=== PATIENT | male | born 1930 | race Caucasian/White ===

== ENCOUNTER → 2019-03-17 | Outpatient (CLI) | payer MEDICARE, BC ==
[2019-03-17 10:29] LABS: POTASSIUM 4.3 MMOL/L (3.6-5.0)
[2019-03-17 10:30] LABS: ALBUMIN 3.5 GM/DL (3.2-4.5); BILIRUBIN,TOTAL 0.7 MG/DL (0.1-1.0); CALCIUM 9.2 MG/DL (8.5-10.1); CREATININE SERUM 1.46 MG/DL (0.60-1.30); TOTAL PROTEIN 6.7 GM/DL (6.4-8.2)
[2019-03-17 15:52] LABS: CHOLESTEROL 105 MG/DL (< 200); HDL CHOLESTEROL 34 MG/DL (40-60); TRIGLYCERIDES 46 MG/DL (<150); VLDL CHOLESTEROL 9 MG/DL (5-40)
== END ==
LOC: LAB FS 08:11
PROVIDERS: ATTEND Pediatrics
DX: I10 Essential (primary) hypertension (principal); E78.00 Pure hypercholesterolemia, unspecified
CPT/HCPCS: 36415; 80053; 80061

== ENCOUNTER 2019-04-15 17:51 | Emergency (ER) | payer MEDICARE, BC | END 2019-04-15 18:30 | disposition home or self-care (01) | LOC: ER FS 17:51 ==

== ENCOUNTER 2019-04-17 10:13 | Emergency (ER) | payer MEDICARE, BC ==
[~2019-04-17] VITALS: Ht 170.2 cm; Wt 78.0 kg
[~2019-04-17 10:13] MED LIST: ALLO100T; ATOR20TA66; CEPH500T PO; HYDR12.5; LOSA100T57; VERA240T14
--- NOTE | 2019-04-17 10:41 | ED Integumentary General ---
General Chief Complaint: Skin/Wound Problems Stated Complaint: RT LEG INJ - INFECTED WOUND Source: patient Exam Limitations: no limitations History of Present Illness Date Seen by Provider: Apr 17, 2019 Time Seen by Provider: 10:24 Initial Comments Patient presents to ER by private conveyance with his daughter and chief complaint that she has been changing the wet-to-dry dressing on his wound for the past 3 days since she was seen in the ER by this provider and noted that it was more hot red and swollen then before. She picked up the Keflex and has been using it appropriately and does not feel that this wound is getting better but rather is gotten worse. He's had no fevers nausea pain. He is not diabetic. He does have dependent edema in both of his legs. The does want to make sure that he is safe to keep on doing the antibiotics and keep his outpatient follow-up appointment with wound care. Allergies and Home Medications Allergies Coded Allergies: No Known Drug Allergies (Unverified , 04/15/19) Home Medications Cephalexin 500 Mg Tablet, 500 MG PO QID Prescribed by: WILLA DUTTON on 04/15/19 [id number] Patient Home Medication List Home Medication List Reviewed: Yes Review of Systems Review of Systems Constitutional: No chills, No fever, No malaise EENTM: No ear discharge, No ear pain Respiratory: No cough, No short of breath Cardiovascular: No chest pain, No edema Gastrointestinal: No abdominal pain, No constipation, No diarrhea Genitourinary: No discharge, No dysuria Musculoskeletal: No back pain, No joint pain Past Zzfcryi-Vnpept-Gwyxdn Hx Patient Social History Alcohol Use: Denies Use Recreational Drug Use: No Smoking Status: Never a Smoker 2nd Hand Smoke Exposure: No Recent Hopitalizations: No Seasonal Allergies Seasonal Allergies: No Past Medical History Surgeries: Yes (skin cancer excision) Respiratory: No Cardiac: Yes High Cholesterol, Hypertension Neurological: No Genitourinary: No Gastrointestinal: No Musculoskeletal: No Endocrine: No HEENT: Yes Hearing Impairment: Hard of Hearing Cancer: Yes Skin Psychosocial: No Integumentary: Yes (skin cancer) Physical Exam Vital Signs Capillary Refill : General Appearance: WD/WN, no apparent distress HEENT: PERRL/EOMI, pharynx normal Cardiovascular: normal peripheral pulses, regular rate, rhythm (75); No no edema Respiratory: no respiratory distress, no accessory muscle use Neurologic/Psychiatric: alert, normal mood/affect, oriented x 3 Skin: other (to round 1 cm wide wounds of non-determinable depth on his right anterior staley. There is warmth and erythema but no induration or fluctuance palpable.) Progress/Results/Core Measures Results/Orders Lab Results Laboratory Tests Test 04/17/19 10:38 Range/Units White Blood Count 6.4 4.3-11.0 10^3/uL Red Blood Count 3.87 L 4.35-5.85 10^6/uL Hemoglobin 12.4 L 13.3-17.7 G/DL Hematocrit 37 L 40-54 % Mean Corpuscular Volume 96 80-99 FL Mean Corpuscular Hemoglobin 32 25-34 PG Mean Corpuscular Hemoglobin Concent 33 32-36 G/DL Red Cell Distribution Width 13.8 10.0-14.5 % Platelet Count 173 130-400 10^3/uL Mean Platelet Volume 9.5 7.4-10.4 FL Neutrophils (%) (Auto) 77 H 42-75 % Lymphocytes (%) (Auto) 13 12-44 % Monocytes (%) (Auto) 10 0-12 % Eosinophils (%) (Auto) 0 0-10 % Basophils (%) (Auto) 0 0-10 % Neutrophils # (Auto) 5.0 1.8-7.8 X 10^3 Lymphocytes # (Auto) 0.8 L 1.0-4.0 X 10^3 Monocytes # (Auto) 0.6 0.0-1.0 X 10^3 Eosinophils # (Auto) 0.0 0.0-0.3 10^3/uL Basophils # (Auto) 0.0 0.0-0.1 10^3/uL Sodium Level 139 135-145 MMOL/L Potassium Level 3.9 3.6-5.0 MMOL/L Chloride Level 101 98-107 MMOL/L Carbon Dioxide Level 26 21-32 MMOL/L Anion Gap 12 5-14 MMOL/L Blood Urea Nitrogen 20 H 7-18 MG/DL Creatinine 1.30 0.60-1.30 MG/DL Estimat Glomerular Filtration Rate 52 BUN/Creatinine Ratio 15 Glucose Level 146 H 70-105 MG/DL Calcium Level 8.9 8.5-10.1 MG/DL Corrected Calcium 9.3 8.5-10.1 MG/DL Total Bilirubin 0.5 0.1-1.0 MG/DL Aspartate Amino Transf (AST/SGOT) 16 5-34 U/L Alanine Aminotransferase (ALT/SGPT) 13 0-55 U/L Alkaline Phosphatase 109 40-136 U/L Total Protein 6.6 6.4-8.2 GM/DL Albumin 3.5 3.2-4.5 GM/DL My Orders Orders - WILLA DUTTON Cefazolin Injection (Ancef Injection) (04/17/19 10:45) Cbc With Automated Diff (04/17/19 10:35) Comprehensive Metabolic Panel (04/17/19 10:35) Ed Iv/Invasive Line Start (04/17/19 10:35) Tibia Fibula 2 View Right (04/17/19 10:42) Medications Given in ED Current Medications Medications Dose Ordered Sig/Diana Route Start Time Stop Time Status Last Admin Dose Admin Cefazolin Sodium 1000 mg/Sterile Water 10 ml @ 200 mls/hr ONCE ONCE IV 04/17/19 10:45 04/17/19 10:47 DC 04/17/19 11:03 200 MLS/HR Progress Progress Note : Time: 10:39 Progress Note The daughter is applying the wet-to-dry dressings appropriately and has done some modest amount of debridement of the wounds. The wound in character appears to be similar to examination 2 days ago. The patient is going on day 3 of antibiotics. It's probably still reasonable to continue outpatient therapy and follow-up with wound care for appropriate debridement. The edema is not helping with his wound healing. Plan to get some labs to help us decide how to proceed. His vital signs are aseptic. Blood cultures don't play a role in cellulitis. Is not having any pain. Perhaps some Jose bandage wraps or compression stockings for edema would be helpful. Ancef 1 g IV Diagnostic Imaging Diagonstic Imaging: Xray Plain Films/CT/US/NM/MRI: leg (r) Comments No acute osseous abnormalities. Reviewed: Reviewed by Me Departure Impression Primary Impression: Wound of right lower extremity Qualified Codes: S81.801D - Unspecified open wound, right lower leg, subsequent encounter Additional Impressions: Cellulitis Qualified Codes: L03.115 - Cellulitis of right lower limb Dependent edema Disposition: HOME, SELF-CARE Condition: Stable (ERASED) Departure-Patient Inst. Decision time for Depature: :38 Referrals: DEBORAH CUEVAS MD (PCP/Family) Primary Care Physician Patient Instructions: Cellulitis (Skin Infection), Adult (DC), Dependent Edema (DC) Add. Discharge Instructions: Apply the wet-to-dry dressings until you see the doctor next week. Continue the antibiotics as prescribed. Obtain compression stockings and wear them daily while up and about or use the Jose wrap starting at the foot wrapping all the way up past the knee. Take the wrap for compression stockings off when he lays down at night. It's okay to wrap both legs. If he experiences Fever, chills, increased pain or redness traveling up the leg then return to the doctor sooner. All discharge instructions reviewed with patient and/or family. Voiced understanding. Scripts Comp.stocking,Knee,Regular,Med (Truform Compression Stocking) 1 Each Each EACH for edema, #1 0 Refills Wear while awake and off to sleep at night. Prov: WILLA DUTTON 04/17/19 WILLA DUTTON Apr 17, 2019 10:41
[2019-04-17] MEDS ORDERED: ceFAZolin INJECTION 1,000 MG in WATER (STERILE) FOR INJECTION 10 ML IV ONE (10:45)
[2019-04-17 11:02] LABS: BASOPHILS % (AUTO) 0 % (0-10); EOSINOPHILS % (AUTO) 0 % (0-10); HEMATOCRIT 37 % (40-54); HEMOGLOBIN 12.4 G/DL (13.3-17.7); LYMPHOCYTES % (AUTO) 13 % (12-44); MEAN CORPUSCULAR HEMOGLOBIN 32 PG (25-34); MEAN CORPUSCULAR HGB CONC 33 G/DL (32-36); MEAN CORPUSCULAR VOLUME 96 FL (80-99); MEAN PLATELET VOLUME 9.5 FL (7.4-10.4); MONOCYTES % (AUTO) 10 % (0-12); NEUTROPHILS % (AUTO) 77 % (42-75); PLATELET COUNT 173 10^3/uL (130-400); RED CELL DISTRIBUTION WIDTH 13.8 % (10.0-14.5); WHITE BLOOD COUNT 6.4 10^3/uL (4.3-11.0)
[2019-04-17 11:03] LABS: LYMPHOCYTES # (AUTO) 0.8 X 10^3 (1.0-4.0); MONOCYTES # (AUTO) 0.6 X 10^3 (0.0-1.0)
[2019-04-17 11:14] LABS: ALBUMIN 3.5 GM/DL (3.2-4.5); BILIRUBIN,TOTAL 0.5 MG/DL (0.1-1.0); CALCIUM 8.9 MG/DL (8.5-10.1); CREATININE SERUM 1.3 MG/DL (0.60-1.30); POTASSIUM 3.9 MMOL/L (3.6-5.0); TOTAL PROTEIN 6.6 GM/DL (6.4-8.2)
[2019-04-17] MEDS ORDERED: COMP-18 MC (11:43)
[2019-04-17 11:47] VITALS: BP 140/48
--- NOTE | 2019-04-17 12:07 | Diagnostic Imaging Report ---
EXAMINATION: Right tibia and fibula at 10:56 AM. INDICATION: Cut on lower leg. AP and lateral views are obtained. There are no prior studies available for comparison. FINDINGS: There is no fracture, dislocation or acute bony abnormality evident. The lateral view does show a 3 x 27 mm low density defect along the skin anterior to the lower leg. Most likely, this corresponds to the patient's reported laceration in this area. There is no radiopaque foreign body evident. Vascular calcifications are seen throughout the lower leg. The knee and ankle joints are fairly well maintained given the patient's advanced age. IMPRESSION: There is evidence of a soft tissue laceration to the anterior aspect of the lower leg but there is no sign of a fracture or of a radiopaque foreign body. Dictated by: Dictated on workstation # [id number]
== END 2019-04-17 11:57 | disposition home or self-care (01) ==
LOC: EDUNIT# 10:13 → ER FS 10:15
DX: S81.801D Unspecified open wound, right lower leg, subsequent encounter (principal); L03.115 Cellulitis of right lower limb; R60.9 Edema, unspecified; I10 Essential (primary) hypertension; E78.00 Pure hypercholesterolemia, unspecified; Z85.828 Personal history of other malignant neoplasm of skin; X58.XXXD Exposure to other specified factors, subsequent encounter
CPT/HCPCS: 36415; 73590; 80053; 85025

== ENCOUNTER → 2019-04-20 | Outpatient (CLI) | payer MEDICARE, BC ==
[~2019-04-20] MED LIST changes: +COMP-18 MC
== END ==
LOC: WOUNDCARE 08:06
PROVIDERS: ATTEND Surgery
DX: L97.212 Non-pressure chronic ulcer of right calf with fat layer exposed (principal); I70.232 Atherosclerosis of native arteries of right leg with ulceration of calf; I87.331 Chronic venous hypertension (idiopathic) with ulcer and inflammation of right lower extremity; E44.1 Mild protein-calorie malnutrition
CPT/HCPCS: 99214

== ENCOUNTER → 2019-04-21 | Outpatient (CLI) | payer MEDICARE, BC | LOC: LAB FS 04-20 10:44 | PROVIDERS: ATTEND Surgery | DX: L97.212 Non-pressure chronic ulcer of right calf with fat layer exposed (principal); I70.232 Atherosclerosis of native arteries of right leg with ulceration of calf; I87.331 Chronic venous hypertension (idiopathic) with ulcer and inflammation of right lower extremity; E44.1 Mild protein-calorie malnutrition | CPT/HCPCS: 36415; 84134 ==

== ENCOUNTER → 2019-04-27 | Outpatient (CLI) | payer MEDICARE, BC | LOC: WOUNDCARE 12:26 | PROVIDERS: ATTEND Surgery | DX: L97.212 Non-pressure chronic ulcer of right calf with fat layer exposed (principal); I70.232 Atherosclerosis of native arteries of right leg with ulceration of calf; I87.331 Chronic venous hypertension (idiopathic) with ulcer and inflammation of right lower extremity; E44.1 Mild protein-calorie malnutrition; I96 Gangrene, not elsewhere classified | CPT/HCPCS: 99212 ==

== ENCOUNTER 2019-05-04 10:21 | Day surgery (SDC) | payer MEDICARE ==
[2019-05-04] VITALS (12 sets, daily range): BP systolic 122–173; BP diastolic 42–119
[~2019-05-04] VITALS: Ht 170.2 cm; Wt 69.4 kg
[~2019-05-04 10:21] MED LIST changes: -ALLO100T; +ALLO100T PO; -ATOR20TA66; +ATOR20TA66 PO; -VERA240T14; +VERA240T14 PO
[2019-05-04] MEDS ORDERED: NS IV 1000 ML 1,000 ML ONE (10:22)
[2019-05-04] MEDS ORDERED: LIDOCAINE 1% INJ 20 ML 20 ML VIAL ONE (10:22)
[2019-05-04] MEDS ORDERED: HEParin (CATH LAB) 2,000 ML IV ONE (10:22)
[2019-05-04] MEDS: NS IV 1000 ML 1,000 ML IV SCH ×4 (10:39→22:50)
[2019-05-04 11:01] LABS: HEMOGLOBIN 13.9 G/DL (13.3-17.7); MEAN PLATELET VOLUME 9.4 FL (7.4-10.4); WHITE BLOOD COUNT 7.7 10^3/uL (4.3-11.0)
[2019-05-04] MEDS ORDERED: ASPI-983 PO (11:10)
[2019-05-04] MEDS ORDERED: LOSA100T57 PO (11:10)
[2019-05-04 11:11] LABS: PROTHROMBIN TIME PATIENT 13.4 SEC (12.2-14.7)
[2019-05-04] MEDS ORDERED: UBID100C17 PO (11:14)
[2019-05-04] MEDS ORDERED: GARL500C PO (11:14)
[2019-05-04] MEDS ORDERED: MIDAZOLAM 5 MG/5 ML (VERSED) VIAL ONE (11:16)
[2019-05-04] MEDS ORDERED: fentaNYL INJECTION 100 MCG/2 ML AMP ONE (11:16)
[2019-05-04] MEDS ORDERED: CHOL500050 PO (11:17)
[2019-05-04 11:18] LABS: ALBUMIN 4.1 GM/DL (3.2-4.5); BILIRUBIN,TOTAL 0.7 MG/DL (0.1-1.0); CALCIUM 9.8 MG/DL (8.5-10.1); CREATININE SERUM 1.26 MG/DL (0.60-1.30); POTASSIUM 4.2 MMOL/L (3.6-5.0)
--- NOTE | 2019-05-04 11:20 | NUR ---
SPOKE WITH PT ( AND HIS DAUGHTER), HE BROUGHT IN HOME MEDS AND WAS ABLE TO COMPLETE THE MED REC. ALL MEDS ARE FROM [facility] AND THE DATES WERE A LITTLE PAST DUE, BUT DAUGHTER INDICATES THAT WHEN NEW ORDERS GET TO HIS HOME THEY WOULD POUR OLD AND NEW BOTTLES TOGETHER TO SAVE SPACE. THE PT WAS ABLE TO TELL ME HOW/WHEN HE TAKES ALL HIS MEDI CATION. OTC MEDS: VITAMIN D 5,000 UNITS: 1 DAILY CO-Q10: 1 CAP BID GARLIC: 2 CAPS DAILY ASPIRIN 81M DAILY
--- NOTE | 2019-05-04 11:39 | Cardiac Procedure Note-CS/ASA ---
Pre-Procedure Note Pre-Op Procedure Note H&P Reviewed The H&P was reviewed, patient examined and no changes noted. Date H&P Reviewed: May 04, 2019 Time H&P Reviewed: 11:39 Conscious Sedation Pre-Proced Time 11:39 ASA Score 3 For ASA 3 and 4: Consider anesthesia and medical clearance. Also, for patients with a history of failed moderate sedation consider anesthesia. Airway Lungs Heart ASA score ASA 1: a normal healthy patient ASA 2: a patient with a mild systemic disease (mid diabetes, controlled hypertension, obesity x ASA 3: a patient with a severe systemic disease that limits activity (angina, COPD, prior Myocardial infarction) ASA 4: a patient with an incapacitating disease that is a constant threat to life (CHF, renal failure) ASA 5: a moribund patient not expected to survive 24 hrs. (ruptured aneurysm) ASA 6: a declared brain- patient whose organs are being harvested. For emergent operations, add the letter E after the classification Mallampati Classification Grade 3 Sedation Plan Analgesia, Amnesia, Plan communicated to team members, Discussed options with patient/fam, Discussed risks with patient/fam The patient is an appropriate candidate to undergo the planned procedure, sedation, and anesthesia. The patient immediately re-assessed prior to indication. MALATHI BOND MD May 04, 2019 11:39
--- NOTE | 2019-05-04 12:53 | Diagnostic Imaging Report ---
INDICATION: PAD COMPARISON: None. FINDINGS: Single frontal view of the chest demonstrates normal heart size and pulmonary vascularity. Lungs show diffuse coarse prominence to the interstitium. There is however no focal consolidation, large effusion, or pneumothorax. Osseous structures show no gross acute abnormalities. Note is made of calcified aortic atherosclerosis. IMPRESSION: 1. Diffuse coarse prominence to the interstitium, may be on the basis of underlying chronic interstitial lung disease. Otherwise, no evidence of failure or focal infiltrate. Dictated by: Dictated on workstation # [id number]
[2019-05-04] MEDS ORDERED: PATIENT MAY USE OWN MEDS, ALL PO SCH (13:45)
--- NOTE | 2019-05-04 13:54 | Peripheral Report ---
Peripheral Report Physician (s)/Early Childhood Teacher Assistant (s) Physician MALATHI BOND MD Pre-Procedure Diagnosis Pre-Procedure Diagnosis: nonhealing foot ulcer Post-Procedure Note Procedure Start Date: May 04, 2019 Name of Procedure: Abdominal aortogram Bilateral runoff Second-order Additional image Findings/Procedure Note PROCEDURE NOTE: 88 years old gentleman with nonhealing foot ulcer, severe peripheral arterial disease, scheduled for peripheral angiogram After explaining the procedure to the patient, all pros and cons were explained, all questions were answered. The patient signed the consent and then he was placed on the cardiac catheterization laboratory. The patient was placed on the cardiac catheterization laboratory. Groin was prepped SL fashion local anesthesia was used. I attempted to access the left groin without success, was able to place a sheath in the artery but unable to advance a wire, angiogram showed poor flow. I decided to abort removed the s gricelda and manual pressure applied stabilized then accessed the right groin, 5 Macedonian sheath was placed then advanced the pigtail catheter to the abdominal aorta and abdominal aortogram was done and crossover with a long stork wire and advanced to straight catheter to the left common femoral artery and runoff to the left leg was done then pulled the catheter to the left common iliac artery and drove off and pulled it back to the right common iliac artery and good runoff to the right leg then I did runoff to the right leg through the sheath and I don't to severe disease below the trifurcation I did DSA to separate imaging to the trifurcation and to the foot level. 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 CONCLUSIONS: 1. 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 2. Total occlusion of the left SFA at its ostium reconstructed by collateral at the popliteal area with diffuse disease below the trifurcation 3. 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 Maximize medical therapy at this point Anesthesia Type: Conscious Sedation Estimated blood loss (mL): 25 ml Contrast Amount: 50 ml Total Radiation Dose: 110 mGy Post-Procedure Diagnosis Post-operative diagnosis: Critical limb ischemia Peripheral arterial disease Severe carotid stenosis Hypertension Hyperlipidemia MALATHI BOND MD May 04, 2019 13:54
[2019-05-05] VITALS: BP 125/51
[2019-05-05 01:00] VITALS: BP 127/53
[2019-05-05 04:00] VITALS: BP 147/57
[2019-05-05] MEDS: NS IV 1000 ML 1,000 ML IV SCH ×2 (06:24→09:02)
--- NOTE | 2019-05-05 07:30 | Cardiology Progress Note ---
Subjective Date Seen by Provider: May 05, 2019 Time Seen by Provider: 07:27 Subjective/Events-last exam Patient is laying down in bed, complaining of pain in his right leg, groin is healing well Review of Systems General: No Chills, No Night Sweats, No Fatigue, No Malaise, No Appetite, No Other HEENT: No Head Aches, No Visual Changes, No Eye Pain, No Ear Pain, No Dysphasia, No Sinus Congestion, No Post Nasal Drip, No Sore Throat, No Other Pulmonary: No Dyspnea, No Cough, No Pleuritic Chest Pain, No Other Cardiovascular: No: Chest Pain, Palpitations, Orthopnea, Paroxysmal Noc. Dyspnea, Edema, Lt Headedness, Other Objective-Cardiology Exam Last Set of Vital Signs Vital Signs 05/05/19 05/05/19 00:00 04:00 Temp 36.1 Pulse 57 Resp 11 B/P (MAP) 147/57 Pulse Ox 99 O2 Delivery Nasal Cannula Capillary Refill : Less Than 3 Seconds I&O Intake and Output 05/05/19 00:00 Intake Total 1000 ml Balance 1000 ml Intake IV Total 1000 ml General: Alert, Oriented X3, Cooperative HEENT: Atraumatic, PERRLA Neck: Supple, No JVD, No Thyromegaly Lungs: Clear to Auscultation, Normal Air Movement Heart: Regular Rate, Normal S1, Normal S2, Other (Systolic murmur) Abdomen: Normal Bowel Sounds, Soft, No Tenderness, No Hepatosplenomegaly, No Masses Extremities: No Clubbing, No Tenderness/Swelling, Other (Nonhealing ulcer on the right leg, poorly pulse) Skin: No Rashes, No Breakdown, No Significant Lesion Neuro: Normal Gait, Normal Speech, Strength at 5/5 X4 Ext, Normal Tone, Sensation Intact Psych/Mental Status: Mental Status NL, Mood NL Results Lab Laboratory Tests 05/04/19 10:45 A/P-Cardiology Admission Diagnosis Ischemic foot ulcer Peripheral arterial disease Critical carotid stenosis Hypertension Hyperlipidemia Assessment/Plan Severe peripheral arterial disease, nonhealing ulcer, angiogram showed occlusion of the anterior tibial artery, had slow flow in the posterior tibial artery and peroneal artery, diffuse disease in the SFA. Possible intervention. The left lower extremity does not have any symptom although he has total occlusion of the left SFA, I discussed with Dr. Ramirez and the patient and the management plan recommended referral for vascular surgery evaluation Severe to critical carotid stenosis, referring for vascular surgery evaluation Hypertension, controlled Hyperlipidemia, continue current medications MALATHI BOND MD May 05, 2019 07:30
--- NOTE | 2019-05-05 07:46 | Discharge Inst-Post CATH ---
Discharge Inst-CATH/EP Problems Reviewed?: Yes Post Cardiac Cath/EP D/C Inst Follow Up/Plan Appointment with Dr. Horne's office in 2-4 weeks <b>CARDIAC CATH/EP PROCEDURE DISCHARGE INSTRUCTIONS</b> ACTIVITY * Go Home directly and rest. * Limit activity of the leg (or wrist if it was used) for 7 days including aerobics, swimming, jogging, bicycling, etc. * Restrict stair-climbing for 7 days if possible, if not, climb up with your non-cath leg, then bring together on the same step. * Avoid lifting, pushing, pulling or excessive movement of the affected extremity for 7 days. * Customary sexual activity may be resumed after 2 days-use caution not to use a position that strains or causes pain to the affected extremity. * No driving for 24 hours. * NO SMOKING. * Avoid straining for bowel movements for 7 days. * Gentle walking on level ground is allowed. * Returning to work will depend on the type of procedure and the results. Your doctor will discuss this with you. CALL YOUR DOCTOR FOR ANY OF THE FOLLOWING: *If bleeding from the puncture site occurs- Apply gentle pressure to site with clean cloth and call your doctor or EMS. * If a knot or lump forms under the skin, increases in size, or causes pain. * If bruising appears to be worsening or moving further down your leg instead of disappearing. * Temperature above 101 F. CARE OF YOUR GROIN INCISION; * Bruising or purple discoloration of the skin near the puncture site is common. * You may shower only, no bathtub bathing for 5 days. Be careful to avoid slipping as your leg may feel stiff. * If a closure device was used on your femoral artery, please see the attached guide regarding care of the device and your leg. * Leave dressing on FOR 24 hours. CARE OF YOUR WRIST INCISION; * Bruising or purple discoloration of the skin near the puncture site is common. * You may shower. * DO NOT submerge wrist. * Leave dressing on FOR 24 hours. MALATHI HORNE MD May 05, 2019 07:46
[2019-05-05 08:00] VITALS: BP 152/51
[2019-05-05] MEDS ORDERED: ASPIRIN E.C. 81 MG (ECOTRIN) TAB PO SCH (09:00)
[2019-05-05] MEDS ORDERED: NON-FORMULARY MEDICATION 1 EA EA (Verapamil HCl (Verapamil ER) 240 MG) PO SCH (09:00)
[2019-05-05] MEDS ORDERED: ALLOPURINOL 100 MG (ZYLOPRIM) TAB PO SCH (09:00)
[2019-05-05] MEDS ORDERED: NON-FORMULARY MEDICATION 1 EA EA (Allopurinol 100 MG) PO SCH (09:00)
[2019-05-05] MEDS ORDERED: VERAPAMIL SR 240 MG (CALAN SR) TAB PO SCH (09:00)
[2019-05-05] MEDS ORDERED: LOSARTAN 100 MG (COZAAR) TABLET PO SCH (09:00)
[2019-05-05 09:53] VITALS: BP 136/60
== END 2019-05-05 09:30 | disposition home or self-care (01) ==
LOC: CATH 10:21 → ICU 14:00 → CATH 05-05 09:30
PROVIDERS: ATTEND Internal Medicine Cardiovascular Disease
DX: I73.9 Peripheral vascular disease, unspecified (principal); L97.519 Non-pressure chronic ulcer of other part of right foot with unspecified severity; I70.1 Atherosclerosis of renal artery; I25.10 Atherosclerotic heart disease of native coronary artery without angina pectoris; I77.1 Stricture of artery; I65.29 Occlusion and stenosis of unspecified carotid artery; I99.8 Other disorder of circulatory system; I10 Essential (primary) hypertension; E78.2 Mixed hyperlipidemia; Z79.82 Long term (current) use of aspirin; Z79.899 Other long term (current) drug therapy
CPT/HCPCS: 36246; 36248; 36415; 71045; 75630; 80053; 80061; 85027; 85610; 85730; 87081; 93005; 93306

== ENCOUNTER → 2019-05-11 | Outpatient (CLI) | payer MEDICARE ==
[~2019-05-11] MED LIST changes: +ASPI-983 PO; +CHOL500050 PO; +GARL500C PO; +LOSA100T57 PO; +UBID100C17 PO
== END ==
LOC: WOUNDCARE 08:13
PROVIDERS: ATTEND Surgery
DX: L97.212 Non-pressure chronic ulcer of right calf with fat layer exposed (principal); I70.232 Atherosclerosis of native arteries of right leg with ulceration of calf; I87.331 Chronic venous hypertension (idiopathic) with ulcer and inflammation of right lower extremity; E44.1 Mild protein-calorie malnutrition; I96 Gangrene, not elsewhere classified
CPT/HCPCS: 99213

== ENCOUNTER → 2019-05-18 | Outpatient (CLI) | payer MEDICARE | LOC: WOUNDCARE 10:01 | PROVIDERS: ATTEND Surgery | DX: I70.261 Atherosclerosis of native arteries of extremities with gangrene, right leg (principal); L97.212 Non-pressure chronic ulcer of right calf with fat layer exposed; I87.331 Chronic venous hypertension (idiopathic) with ulcer and inflammation of right lower extremity; E44.1 Mild protein-calorie malnutrition | CPT/HCPCS: 99212 ==

== ENCOUNTER → 2019-05-25 | Outpatient (CLI) | payer MEDICARE | LOC: WOUNDCARE 09:45 | PROVIDERS: ATTEND Surgery | DX: L97.212 Non-pressure chronic ulcer of right calf with fat layer exposed (principal); I70.232 Atherosclerosis of native arteries of right leg with ulceration of calf; I87.331 Chronic venous hypertension (idiopathic) with ulcer and inflammation of right lower extremity; E44.1 Mild protein-calorie malnutrition; I96 Gangrene, not elsewhere classified | CPT/HCPCS: 99212 ==

== ENCOUNTER → 2019-06-08 | Outpatient (CLI) | payer MEDICARE | LOC: WOUNDCARE 09:47 | PROVIDERS: ATTEND Surgery | DX: L97.212 Non-pressure chronic ulcer of right calf with fat layer exposed (principal); I70.232 Atherosclerosis of native arteries of right leg with ulceration of calf; I87.331 Chronic venous hypertension (idiopathic) with ulcer and inflammation of right lower extremity; E44.1 Mild protein-calorie malnutrition; I96 Gangrene, not elsewhere classified | CPT/HCPCS: 99213 ==

== ENCOUNTER → 2019-06-22 | Outpatient (CLI) | payer MEDICARE | LOC: WOUNDCARE 09:43 | PROVIDERS: ATTEND Surgery | DX: L97.212 Non-pressure chronic ulcer of right calf with fat layer exposed (principal); I70.232 Atherosclerosis of native arteries of right leg with ulceration of calf; I87.331 Chronic venous hypertension (idiopathic) with ulcer and inflammation of right lower extremity; E44.1 Mild protein-calorie malnutrition; I96 Gangrene, not elsewhere classified | CPT/HCPCS: 99213 ==

== ENCOUNTER → 2019-07-06 | Outpatient (CLI) | payer MEDICARE | LOC: WOUNDCARE 09:38 | PROVIDERS: ATTEND Surgery | DX: L97.212 Non-pressure chronic ulcer of right calf with fat layer exposed (principal); I70.242 Atherosclerosis of native arteries of left leg with ulceration of calf; I87.331 Chronic venous hypertension (idiopathic) with ulcer and inflammation of right lower extremity; E44.1 Mild protein-calorie malnutrition; I96 Gangrene, not elsewhere classified | CPT/HCPCS: 99212 ==

== ENCOUNTER → 2019-07-14 | Outpatient (CLI) | payer MEDICARE ==
[2019-07-14 12:03] LABS: CALCIUM 9.3 MG/DL (8.5-10.1); CREATININE SERUM 1.28 MG/DL (0.60-1.30); POTASSIUM 4.2 MMOL/L (3.6-5.0)
== END ==
LOC: LAB FS 11:03
PROVIDERS: ATTEND Thoracic Surgery (Cardiothoracic Vascular Surgery)
DX: I26.99 Other pulmonary embolism without acute cor pulmonale (principal)
CPT/HCPCS: 36415; 80048

== ENCOUNTER → 2019-07-20 | Outpatient (CLI) | payer MEDICARE | LOC: WOUNDCARE 09:45 | PROVIDERS: ATTEND Surgery | DX: L97.212 Non-pressure chronic ulcer of right calf with fat layer exposed (principal); I70.232 Atherosclerosis of native arteries of right leg with ulceration of calf; I87.331 Chronic venous hypertension (idiopathic) with ulcer and inflammation of right lower extremity; E44.1 Mild protein-calorie malnutrition; I96 Gangrene, not elsewhere classified | CPT/HCPCS: 11042 ==

== ENCOUNTER → 2019-07-27 | Outpatient (CLI) | payer MEDICARE | LOC: WOUNDCARE 10:19 | PROVIDERS: ATTEND Surgery | DX: I70.261 Atherosclerosis of native arteries of extremities with gangrene, right leg (principal); I87.331 Chronic venous hypertension (idiopathic) with ulcer and inflammation of right lower extremity; L97.212 Non-pressure chronic ulcer of right calf with fat layer exposed; E44.1 Mild protein-calorie malnutrition | CPT/HCPCS: 11042 ==

== ENCOUNTER → 2019-07-29 | Outpatient (CLI) | payer MEDICARE ==
[~2019-07-29] MED LIST changes: -GARL500C PO; +GARL500C11 PO
== END ==
LOC: LAB FS 11:46
PROVIDERS: ATTEND Surgery
DX: L97.212 Non-pressure chronic ulcer of right calf with fat layer exposed (principal); I70.232 Atherosclerosis of native arteries of right leg with ulceration of calf; I87.331 Chronic venous hypertension (idiopathic) with ulcer and inflammation of right lower extremity; E44.1 Mild protein-calorie malnutrition
CPT/HCPCS: 36415; 84134

== ENCOUNTER → 2019-08-03 | Outpatient (CLI) | payer MEDICARE ==
[~2019-08-03] MED LIST changes: +GARL500C PO; -GARL500C11 PO
== END ==
LOC: WOUNDCARE 10:15
PROVIDERS: ATTEND Surgery
DX: I70.261 Atherosclerosis of native arteries of extremities with gangrene, right leg (principal); L97.212 Non-pressure chronic ulcer of right calf with fat layer exposed; I87.331 Chronic venous hypertension (idiopathic) with ulcer and inflammation of right lower extremity; E44.1 Mild protein-calorie malnutrition
CPT/HCPCS: 15271

== ENCOUNTER → 2019-08-10 | Outpatient (CLI) | payer MEDICARE | LOC: WOUNDCARE 09:48 | PROVIDERS: ATTEND Surgery | DX: L97.212 Non-pressure chronic ulcer of right calf with fat layer exposed (principal); I70.232 Atherosclerosis of native arteries of right leg with ulceration of calf; I87.331 Chronic venous hypertension (idiopathic) with ulcer and inflammation of right lower extremity; E44.1 Mild protein-calorie malnutrition; I96 Gangrene, not elsewhere classified | CPT/HCPCS: 15271 ==

== ENCOUNTER → 2019-08-15 | Outpatient (CLI) | payer MEDICARE | LOC: WOUNDCARE 12:31 | PROVIDERS: ATTEND Surgery | DX: I70.261 Atherosclerosis of native arteries of extremities with gangrene, right leg (principal); L97.212 Non-pressure chronic ulcer of right calf with fat layer exposed; I87.331 Chronic venous hypertension (idiopathic) with ulcer and inflammation of right lower extremity; E44.1 Mild protein-calorie malnutrition | CPT/HCPCS: 15271 ==

== ENCOUNTER → 2019-08-22 | Outpatient (CLI) | payer MEDICARE | LOC: WOUNDCARE 12:38 | PROVIDERS: ATTEND Surgery | DX: I70.261 Atherosclerosis of native arteries of extremities with gangrene, right leg (principal); L97.212 Non-pressure chronic ulcer of right calf with fat layer exposed; I87.331 Chronic venous hypertension (idiopathic) with ulcer and inflammation of right lower extremity; E44.1 Mild protein-calorie malnutrition | CPT/HCPCS: 15271 ==

== ENCOUNTER → 2019-08-29 | Outpatient (CLI) | payer MEDICARE | LOC: WOUNDCARE 12:34 | PROVIDERS: ATTEND Preventive Medicine Undersea and Hyperbaric Medicine | DX: L97.212 Non-pressure chronic ulcer of right calf with fat layer exposed (principal); I87.331 Chronic venous hypertension (idiopathic) with ulcer and inflammation of right lower extremity; I70.232 Atherosclerosis of native arteries of right leg with ulceration of calf; E44.1 Mild protein-calorie malnutrition | CPT/HCPCS: 15271 ==

== ENCOUNTER → 2019-09-05 | Outpatient (CLI) | payer MEDICARE ==
[~2019-09-05] MED LIST changes: -GARL500C PO; +GARL500C11 PO
== END ==
LOC: WOUNDCARE 12:32
PROVIDERS: ATTEND Preventive Medicine Undersea and Hyperbaric Medicine
DX: I70.232 Atherosclerosis of native arteries of right leg with ulceration of calf (principal); L97.212 Non-pressure chronic ulcer of right calf with fat layer exposed; I87.331 Chronic venous hypertension (idiopathic) with ulcer and inflammation of right lower extremity; E44.1 Mild protein-calorie malnutrition
CPT/HCPCS: 99212

== ENCOUNTER → 2019-09-12 | Outpatient (CLI) | payer MEDICARE | LOC: WOUNDCARE 12:38 | PROVIDERS: ATTEND Preventive Medicine Undersea and Hyperbaric Medicine | DX: I70.261 Atherosclerosis of native arteries of extremities with gangrene, right leg (principal); L97.212 Non-pressure chronic ulcer of right calf with fat layer exposed; I87.331 Chronic venous hypertension (idiopathic) with ulcer and inflammation of right lower extremity; E44.1 Mild protein-calorie malnutrition | CPT/HCPCS: 99212 ==

== ENCOUNTER → 2019-09-26 | Outpatient (CLI) | payer MEDICARE | LOC: WOUNDCARE 12:39 | PROVIDERS: ATTEND Preventive Medicine Undersea and Hyperbaric Medicine | DX: I70.232 Atherosclerosis of native arteries of right leg with ulceration of calf (principal); L97.212 Non-pressure chronic ulcer of right calf with fat layer exposed; I87.331 Chronic venous hypertension (idiopathic) with ulcer and inflammation of right lower extremity; E44.1 Mild protein-calorie malnutrition | CPT/HCPCS: 99212 ==